=== PATIENT | male | born 1995 | race African-American/Black ===

== ENCOUNTER 2016-11-20 06:05 | Emergency (ER) | payer SELFPAY ==
[2016-11-20 06:12] VITALS: BP 123/71; PULSE 66; RESP 18; TEMP 99.1; O2SAT 99
[2016-11-20] MEDS ORDERED: ALEV220T14 PO (06:32)
--- NOTE | 2016-11-20 06:33 | PD ---
HPI Chief Complaint: Musculoskeletal Complaint Time Seen by Provider: 06:21 Travel History International Travel<30 days: No Contact w/Intl Traveler<30days: No Traveled to known affect area: No History of Present Illness HPI 21yo M with no PMH presents to the ED with c/o left leg pain s/p playing soccer at 8pm last night. States he was kicked in his left lateral ankle and fell and has pain in his ankle and fibula. States no exacerbation or alleviating factors. Took alleve last night with no relieve. Denies any head trauma, chest pain, sob, n/v, abdominal pain, focal weakness or numbness. Pt able to ambulate but with pain. PFSH Past Medical History ?: Not Social History Tobacco Use: No Allergies-Medications (Allergen,Severity, Reaction): Coded Allergies: quinine (Verified Allergy, Severe, Hives, 11/21/16) Uncoded Allergies: UNK MEDTHAT STARTS WITH A Q (Allergy, Intermediate, 11/20/16) Reported Meds & Prescriptions Reported Meds & Active Scripts Active Lortab (Hydrocodone-Acetaminophen) 5-325 Mg Tab 1 Tab PO Q6H PRN Ibuprofen 600 Mg Tab 600 Mg PO Q8HR PRN Reported Aleve Arthritis (Naproxen Sodium) 220 Mg Tab 220 Mg PO BID Review of Systems Except as stated in HPI: all other systems reviewed are Neg Physical Exam Narrative GENERAL: 21yo M in mild distress. SKIN: Focused skin assessment warm/dry. HEAD: Atraumatic. Normocephalic. EYES: Pupils equal and round. No scleral icterus. No injection or drainage. CARDIOVASCULAR: Regular rate and rhythm. No murmur appreciated. RESPIRATORY: No accessory muscle use. Clear to auscultation. Breath sounds equal bilaterally. GASTROINTESTINAL: Abdomen soft, non-tender, nondistended. No rebound tenderness or guarding. MUSCULOSKELETAL: LLE: +TTP mid to distal fibula. +TTP lateral malleolus. No edema. No erythema. No ecchymoses. DP 2+. Calf soft. Sensation intact. FROM in left knee and ankle. NEUROLOGICAL: Awake and alert. No obvious cranial nerve deficits. Motor grossly within normal limits. Normal speech. PSYCHIATRIC: Appropriate mood and affect; insight and judgment normal. Data Data Last Documented VS Vital Signs Date Time Temp Pulse Resp B/P (MAP) Pulse Ox O2 Delivery O2 Flow Rate FiO2 11/20/16 07:11 11/20/16 06:12 99.1 66 18 99 Orders Orders Tibia/Fibula (Ap/Lat) (11/20/16 ) Ankle, Limited (Ap&Lat) (11/20/16 ) Ketorolac Inj (Toradol Inj) (11/20/16 06:45) Diazepam (Valium) (11/20/16 07:00) Ed Discharge Order (11/20/16 06:59) [facility] Medical Decision Making Medical Screen Exam Complete: Yes Emergency Medical Condition: Yes Differential Diagnosis Contusion vs. fracture Narrative Course 21yo M with left leg pain s/p being kicked by someone while playing soccer last night. No open wounds on exam. Will do xray ankle and tib/fib. Will give toradol and reevaluate. Xray of left ankle showed mild soft tissue swelling. No fracture is seen. Xray tib/fib showed no fracture or dislocation. Pt still with pain after toradol so valium 5mg PO given. Return precautions given. Diagnosis Primary Impression: Contusion of left ankle Qualified Codes: S90.02XA - Contusion of left ankle, initial encounter Patient Instructions: General Instructions Departure Forms: Tests/Procedures Additional Instructions: Please follow up with your primary care physician in 3-7 days. Return to the ED if symptoms worsen. Med/Other Pt SpecificInfo: Prescription(s) given Scripts Ibuprofen (Ibuprofen) 600 Mg Tab 600 MG PO Q8HR Y for PAIN, #20 TAB 0 Refills Prov: Sierra Kirby DO 11/20/16 Disposition: 01 DISCHARGE HOME Condition: Stable Sierra Kirby DO Nov 20, 2016 06:33
[2016-11-20] MEDS ORDERED: KETOROLAC TROMETHAMINE 60 MG/2 ML (IM) VIAL IM ONE (06:45)
--- NOTE | 2016-11-20 06:48 | RADRPT ---
EXAM DATE/TIME: 11/20/2016 06:30 [facility] COMPARISON: No previous studies available for comparison. INDICATIONS : Soccer injury. Pain lower left leg. MEDICAL HISTORY : None. SURGICAL HISTORY : None. ENCOUNTER: Initial ACUITY: 1 day PAIN SCORE: 6/10 LOCATION: Left lateral FINDINGS: Two view examination of the left tibia demonstrates no evidence of fracture or dislocation. Bony min eralization is normal. The soft tissue structures are intact. CONCLUSION: No acute disease. Franklin Lopes MD on November 20, 2016 at 6:46 Board Certified Radiologist. This report was verified electronically.
--- NOTE | 2016-11-20 06:49 | RADRPT ---
EXAM DATE/TIME: 11/20/2016 06:30 [facility] COMPARISON: No previous studies available for comparison. INDICATIONS : Soccer injury. Left ankle pain. MEDICAL HISTORY : None. SURGICAL HISTORY : None. ENCOUNTER: Initial ACUITY: 1 day PAIN SCORE: 7/10 LOCATION: Left chest FINDINGS: No fracture is seen. The lungs normally aligned. There is mild lateral soft tissue swelling. CONCLUSION: Mild soft tissue swelling. Franklin Lopes MD on November 20, 2016 at 6:47 Board Certified Radiologist. This report was verified electronically.
[2016-11-20] MEDS ORDERED: IBUP-232 PO (06:58)
[2016-11-20] MEDS ORDERED: DIAZEPAM 5 MG TAB PO ONE (07:00)
[2016-11-21] MEDS ORDERED: HYDR-3533 PO (09:54)
== END 2016-11-20 07:43 | disposition home or self-care (01) ==
LOC: PHED 06:05
DX: S90.02XA Contusion of left ankle, initial encounter (principal); W03.XXXA Other fall on same level due to collision with another person, initial encounter; Y93.66 Activity, soccer
CPT/HCPCS: 73590; 73600; 96372; 99284; J1885

== ENCOUNTER 2016-11-21 09:19 | Emergency (ER) | payer SELFPAY ==
[~2016-11-21] VITALS: Ht 170.2 cm; Wt 76.0 kg
[~2016-11-21 09:19] MED LIST: ALEV220T14 PO; IBUP-232 PO
[2016-11-21 09:24] VITALS: BP 128/76; PULSE 56; RESP 16; TEMP 99.1; O2SAT 100
[2016-11-21] MEDS ORDERED: HYDR-3533 PO (09:54)
--- NOTE | 2016-11-21 09:54 | PD ---
HPI Chief Complaint: Injury Time Seen by Provider: 09:36 Travel History International Travel<30 days: No Contact w/Intl Traveler<30days: No Traveled to known affect area: No History of Present Illness HPI This is a 21-year-old man presents emergent heart complaining of left leg pain. He states he was kicked playing soccer couple days ago. He has pain and tenderness on the anterior left brown. He had x-rays done 2 days ago that were negative. These included the ankle and the tib-fib. He was diagnosed with a contusion. He was given a prescription for antibiotic pain medicines. He states it still hurts. States she couldn't sleep last night because of the pain. History Past Medical History Medical History: Denies Significant Hx Tetanus Vaccination: < 5 Years Influenza Vaccination: No Past Surgical History Surgical History: No Previous Surgery Social History Alcohol Use: Yes (socially mix drinks, wine or beer) Tobacco Use: Yes (3/4 ppd) Allergies-Medications (Allergen,Severity, Reaction): Coded Allergies: quinine (Verified Allergy, Severe, Hives, 11/21/16) Uncoded Allergies: UNK MEDTHAT STARTS WITH A Q (Allergy, Intermediate, 11/20/16) Reported Meds & Prescriptions Reported Meds & Active Scripts Active Ibuprofen 600 Mg Tab 600 Mg PO Q8HR PRN Reported Aleve Arthritis (Naproxen Sodium) 220 Mg Tab 220 Mg PO BID Review of Systems Except as stated in HPI: all other systems reviewed are Neg Physical Exam Narrative GENERAL: Well-appearing 21-year-old. No acute distress. SKIN: Warm and dry. CARDIOVASCULAR: Warm and well perfused. RESPIRATORY: Normal rate and effort. MUSCULOSKELETAL: Focused examination of the left leg shows some tenderness just over the proximal fibula in the soft tissues with some swelling. There is no pain with passive dorsiflexion of the foot plantar flexion of the foot however there is reproducing pain with dorsiflexion of the foot. No numbness tingling or weakness. Well-perfused distally. NEUROLOGICAL: Awake and alert. No gross deficits. Data Data Last Documented VS Vital Signs Date Time Temp Pulse Resp B/P (MAP) Pulse Ox O2 Delivery O2 Flow Rate FiO2 11/21/16 09:36 16 100 Room Air 11/21/16 09:24 99.1 56 128/76 (93) Orders Orders Acetamin-Hydrocod 325-5 Mg ([place] 5-325 (11/21/16 10:00) MDM Medical Decision Making Medical Screen Exam Complete: Yes Emergency Medical Condition: Yes Differential Diagnosis Contusion, pain, compartment syndrome, other Narrative Course Medical decision making 21-year-old man presents emergent department with pain in the anterior left brown after he was kicked there. He has some soft tissue swelling in the area. I don't think he has compartment syndrome. X-rays were reviewed from previous imaging. I don't see any evidence of fibular fracture. Recommend supportive treatment. Diagnosis Primary Impression: Contusion of left leg Additional Instructions: Keep leg elevated. Continue ibuprofen as prescribed. Use Lortab sparingly as needed for severe pain. Return to the emergency department for any new or worsening symptoms. Worsening pain, numbness or tingling, or any other new or worsening symptoms. Med/Other Pt SpecificInfo: Prescription(s) given Scripts Hydrocodone-Acetaminophen (Lortab) 5-325 Mg Tab 1 TAB PO Q6H Y for PAIN, #6 TAB 0 Refills Prov: Taj Morris MD 11/21/16 Disposition: 01 DISCHARGE HOME Condition: Stable Taj Morris MD Nov 21, 2016 09:54
[2016-11-21] MEDS ORDERED: ACETAMINOPHEN/HYDROcodone 325 MG/5 MG TAB PO ONE (10:00)
== END 2016-11-21 10:33 | disposition home or self-care (01) ==
LOC: PHED 09:19
DX: S80.12XA Contusion of left lower leg, initial encounter (principal); M79.605 Pain in left leg; F17.200 Nicotine dependence, unspecified, uncomplicated; W50.1XXA Accidental kick by another person, initial encounter; Y93.66 Activity, soccer
CPT/HCPCS: 99283